=== PATIENT | male | born 1975 | race Hispanic/Latino ===

== ENCOUNTER 2017-08-26 11:29 | Emergency (ER) | payer SELFPAY ==
[2017-08-26 12:37] LABS: Absolute Lymphocytes (CBC) 1.1 K/uL (0.7-4.9); Absolute Monocytes 0.8 K/uL (0.1-1.3); Basophils % 0.2 % (0-1.3); Eosinophils % 0.2 % (0-4.4); Hematocrit 45.1 % (39.6-49.0); MCH 29.7 pg (27.0-35.0); MCV 90.3 fL (80-100)
[2017-08-26 12:55] LABS: Potassium 3.8 mEq/L (3.6-5.0)
[2017-08-26 13:01] LABS: Albumin 3.7 g/dL (3.2-5.5); Bilirubin Direct 0.1 mg/dL (0-0.2); Bilirubin Total 0.7 mg/dL (0.3-1.2); Protein, Total 6.6 g/dL (6.0-8.3)
--- NOTE | 2017-08-26 13:03 | ER ---
Nurse's Notes [facility] Name: Abram Wells Age: 42 yrs Sex: Male : 1975 Arrival Date: 08/26/2017 Time: 11:29 Bed 26 Private MD: Diagnosis: Diarrhea, unspecified Presentation: 08/26 11:37 Presenting complaint: Patient states: Diarrhea x 3 days, black in color today. Drank hb Pepto Bismol last night. Denies N/V/fever. Transition of care: patient was not received from another setting of care. Onset of symptoms was August 24, 2017. Care prior to arrival: None. 11:37 Method Of Arrival: Ambulatory hb 11:37 Acuity: TRACE 3 hb Triage Assessment: 11:39 General: Appears in no apparent distress. Behavior is calm, cooperative. Pain: Denies hb pain. Neuro: Level of Consciousness is awake, alert, obeys commands, Oriented to person, place, time, situation. Cardiovascular: Capillary refill < 3 seconds Patient's skin is warm and dry. Respiratory: Airway is patent Respiratory effort is even, unlabored, Respiratory pattern is regular, symmetrical. GI: Reports diarrhea. Historical: - Allergies: 11:39 No Known Allergies; hb - Home Meds: 11:39 None [Active]; hb - PMHx: 11:39 None; hb - PSHx: 11:39 None; hb - Immunization history:: Adult Immunizations up to date. - Social history:: Smoking status: Patient/guardian denies using tobacco. Screenin:31 Abuse screen: Denies threats or abuse. Denies injuries from another. Nutritional ss screening: No deficits noted. Tuberculosis screening: Never had TB. Fall Risk None identified. Assessment: 12:00 General: Appears in no apparent distress. comfortable, Behavior is calm, cooperative. ss Pain: Denies pain. Neuro: Level of Consciousness is awake, alert, obeys commands, Oriented to person, place, time, situation. Cardiovascular: Capillary refill < 3 seconds is brisk in bilateral fingers. Respiratory: Airway is patent Respiratory effort is even, unlabored, Respiratory pattern is regular, symmetrical. GI: Abdomen is non-distended, Bowel sounds present X 4 quads. Abd is soft and non tender X 4 quads. Reports diarrhea, since 2-3 days ago, black stools yesterday after taking PO Pepto Bismol. GI: Patient currently denies diarrhea, nausea, vomiting. EENT: Oral mucosa is moist. Throat is clear. Derm: Skin is intact, is healthy with good turgor, Skin is dry, Skin is pink, warm \T\ dry. normal. Musculoskeletal: Circulation, motion, and sensation intact. Range of motion: intact in all extremities, Swelling absent. Vital Signs: 11:40 BP 139 / 98; Pulse 88; Resp 16; Temp 98.4(O); Pulse Ox 96% on R/A; Weight 117.93 kg; hb Height 6 ft. (182.88 cm); Pain 0/10; 12:54 BP 126 / 85; Pulse 62; Resp 17; Pulse Ox 97% on R/A; dh3 11:40 Body Mass Index 35.26 (117.93 kg, 182.88 cm) hb ED Course: 11:29 Patient arrived in ED. as 11:39 Triage completed. hb 11:40 Arm band placed on right wrist. hb 11:40 Patient placed in waiting room, Patient notified of wait time. hb 11:49 Flaquita Velázquez FNP-C is [facility]. kb 11:49 Edy Ewing MD is Attending Physician. kb 12:25 Consuelo Stahl RN is Primary Nurse. ss 12:31 Patient has correct armband on for positive identification. Bed in low position. Call ss light in reach. 12:31 Inserted saline lock: 20 gauge in right antecubital area, using aseptic technique. ss Blood collected. 12:46 Urine collected: clean catch specimen, clear. 3 13:06 No provider procedures requiring assistance completed. IV discontinued, intact, ss bleeding controlled, No redness/swelling at site. Pressure dressing applied. Administered Medications: No medications were administered Outcome: 13:03 Discharge ordered by . kb 13:06 Discharged to home ambulatory. ss 13:06 Condition: good 13:06 Instructed on discharge instructions, follow up and referral plans. medication usage, Demonstrated understanding of instructions, follow-up care, medications. 13:14 Patient left the ED. Signatures: Flaquita Velázquez FNP-C FNP-Kimi Sung as Consuelo Stahl RN RN Tere Murcia RN RN Raquel Denis 3
--- NOTE | 2017-08-26 13:04 | EDPHYS ---
Physician Documentation [facility] Name: Abram Wells Age: 42 yrs Sex: Male : 1975 Arrival Date: 08/26/2017 Time: 11:29 Bed 26 Private MD: ED Physician Edy Ewing HPI: 08/26 11:55 This 42 yrs old Male presents to ER via Ambulatory with complaints of Diarrhea.kb 11:55 The patient presents to the emergency department with diarrhea. Onset: The kb symptoms/episode began/occurred 3 day(s) ago. Possible causes: unknown. The symptoms are aggravated by nothing. The symptoms are alleviated by nothing. Associated signs and symptoms: Pertinent positives: diarrhea, fever, Pertinent negatives: abdominal pain, anorexia, belching, constipation, dysuria, flatulence, GI bleeding, hematuria, nausea, vomiting. Severity of symptoms: At their worst the symptoms were moderate in the emergency department the symptoms are unchanged. The patient has not experienced similar symptoms in the past. The patient has not recently seen a physician. Pt states he has had diarrhea for 3 days. Took pepto bismol last night, now diarrhea is not as bad, but it is black in color. Historical: - Allergies: 11:39 No Known Allergies; hb - Home Meds: 11:39 None [Active]; hb - PMHx: 11:39 None; hb - PSHx: 11:39 None; hb - Immunization history:: Adult Immunizations up to date. - Social history:: Smoking status: Patient/guardian denies using tobacco. ROS: 11:55 Cardiovascular: Negative for chest pain, palpitations, and edema, Respiratory: Negative kb for shortness of breath, cough, wheezing, and pleuritic chest pain, Back: Negative for injury and pain, : Negative for injury, bleeding, discharge, and swelling, MS/Extremity: Negative for injury and deformity, Skin: Negative for injury, rash, and discoloration, Neuro: Negative for headache, weakness, numbness, tingling, and seizure. 11:55 Constitutional: Positive for fever, Negative for body aches, chills, fatigue, malaise, poor PO intake, weight loss. 11:55 Abdomen/GI: Positive for diarrhea, Negative for abdominal pain, nausea and vomiting, constipation, abdominal cramps, abdominal distension, anorexia. Exam: 11:55 Constitutional: This is a well developed, well nourished patient who is awake, alert, kb and in no acute distress. Head/Face: Normocephalic, atraumatic. Chest/axilla: Normal chest wall appearance and motion. Nontender with no deformity. No lesions are appreciated. Cardiovascular: Regular rate and rhythm with a normal S1 and S2. No gallops, murmurs, or rubs. Normal PMI, no JVD. No pulse deficits. Respiratory: Lungs have equal breath sounds bilaterally, clear to auscultation and percussion. No rales, rhonchi or wheezes noted. No increased work of breathing, no retractions or nasal flaring. Abdomen/GI: Soft, non-tender, with normal bowel sounds. No distension or tympany. No guarding or rebound. No evidence of tenderness throughout. Back: No spinal tenderness. No costovertebral tenderness. Full range of motion. Skin: Warm, dry with normal turgor. Normal color with no rashes, no lesions, and no evidence of cellulitis. MS/ Extremity: Pulses equal, no cyanosis. Neurovascular intact. Full, normal range of motion. Neuro: Awake and alert, GCS 15, oriented to person, place, time, and situation. Cranial nerves II-XII grossly intact. Motor strength 5/5 in all extremities. Sensory grossly intact. Cerebellar exam normal. Normal gait. Vital Signs: 11:40 BP 139 / 98; Pulse 88; Resp 16; Temp 98.4(O); Pulse Ox 96% on R/A; Weight 117.93 kg; hb Height 6 ft. (182.88 cm); Pain 0/10; 12:54 BP 126 / 85; Pulse 62; Resp 17; Pulse Ox 97% on R/A; dh3 11:40 Body Mass Index 35.26 (117.93 kg, 182.88 cm) hb MDM: 11:49 Patient medically screened. kb 11:55 Data reviewed: vital signs, nurses notes. Data interpreted: Pulse oximetry: on room air kb is 96 %. Interpretation: normal. 13:02 Counseling: I had a detailed discussion with the patient and/or guardian regarding: the kb historical points, exam findings, and any diagnostic results supporting the discharge/admit diagnosis, lab results, the need for outpatient follow up, a family practitioner, to return to the emergency department if symptoms worsen or persist or if there are any questions or concerns that arise at home. 08/26 11:49 Order name: Amylase, Serum; Complete Time: 13:02 kb 08/26 11:49 Order name: Basic Metabolic Panel; Complete Time: 13:02 kb 08/26 11:49 Order name: CBC with Diff; Complete Time: 12:41 kb 08/26 11:49 Order name: Hepatic Function; Complete Time: 13:02 kb 08/26 11:49 Order name: Lipase; Complete Time: 13:02 kb 08/26 12:45 Order name: Urine Dipstick--Ancillary (enter results) bd 08/26 11:49 Order name: Urine Dipstick-Ancillary (obtain specimen); Complete Time: 12:47 kb 08/26 11:49 Order name: IV Saline Lock; Complete Time: 12:31 kb 08/26 11:49 Order name: Labs collected and sent; Complete Time: 12:31 kb Administered Medications: No medications were administered Disposition: 15:10 Co-signature as Attending Physician, Edy Ewing MD I agree with the assessment and josefina plan of care. Disposition: 08/26/17 13:03 Discharged to Home. Impression: Diarrhea, unspecified. - Condition is Stable. - Discharge Instructions: Food Choices to Help Relieve Diarrhea, Adult, Diarrhea, [id number]. - Medication Reconciliation Form, Thank You Letter, Antibiotic Education, Prescription Opioid Use form. - Follow up: Emergency Department; When: As needed; Reason: Worsening of condition. Follow up: Private Physician; When: 2 - 3 days; Reason: Recheck today's complaints, Continuance of care, Re-evaluation by your physician. Signatures: Dispatcher [employer] Flaquita Houston, PRINCIPAL CLERK-C THANH-Edy Guzman MD MD cha Smirch, Shelby, Tere Witt RN, BRYCE WU
[2017-08-26 14:37] LABS: Urine Blood NEGATIVE (NEG); Urine Glucose NEGATIVE (NEG); Urine Protein NEGATIVE (NEG); Urine Specific Gravity 1.025 (1.005-1.030); Urine pH 5.5 (5.0-7.0)
== END 2017-08-26 13:14 | disposition home or self-care (01) ==
LOC: ER 11:29
DX: R19.7 Diarrhea, unspecified (principal)
CPT/HCPCS: 36415; 80048; 80076; 81003; 82150; 83690; 85025; 99283